=== PATIENT | female | born 1960 | race Caucasian/White ===

== ENCOUNTER 2018-03-12 10:24 | Emergency (ER) | payer SELFPAY ==
[~2018-03-12] VITALS: Ht 162.6 cm; Wt 58.4 kg
[2018-03-12 11:30] LABS: CHLORIDE 110 mEq/L (99-109); POTASSIUM 4.1 mEq/L (3.7-5.4); SODIUM 142 mEq/L (136-147)
[2018-03-12 11:32] LABS: GLUCOSE 99 mg/dL (70-99)
[2018-03-12 11:36] LABS: CREATININE 0.8 mg/dL (0.6-1.3); HEMATOCRIT 45.4 % (36.0-46.0); HEMOGLOBIN 16.2 G/DL (11.9-15.5); MCH 31.2 PG (29.0-34.0); MCHC 35.7 G/DL (30.0-36.0); MCV 87.3 FL (83-99); PLATELET COUNT 224 K/uL (156-360); RBC DIS.WIDTH-CV 11.9 % (11.8-14.6); RBC DIS.WIDTH-SD 38.2 % (39-53); WHITE BLOOD COUNT 7.4 K/uL (4.1-10.2)
[2018-03-12 11:37] LABS: UREA NITROGEN (BUN) 14 mg/dL (9-23)
[2018-03-12 11:41] LABS: TROP-I INTERPRETATION NEGATIVE; TROPONIN-I < 0.01 ng/mL (0.0-0.30)
[2018-03-12 11:42] LABS: GFR ESTIMATE (CALCULATED) > 59 mL/min/
[2018-03-12] MEDS ORDERED: DOXYCYCLINE HY200 MG PO (18:15)
[2018-03-12 18:24] VITALS: BP 157/94
[2018-03-14 11:49] LABS: LYME DISEASE SEROLOGY SCREEN NEGATIVE (NEGATIVE)
== END 2018-03-12 18:25 | disposition home or self-care (01) ==
LOC: EME 10:24
PROVIDERS: Emergency Medicine
DX: M25.552 Pain in left hip (principal); M25.561 Pain in right knee; R00.2 Palpitations; I10 Essential (primary) hypertension; Z87.891 Personal history of nicotine dependence
CPT/HCPCS: 71046; 80048; 83880; 84484; 85027; 85651; 86140; 86618; 93005; 99281; 99285; J7030